=== PATIENT | female | born 1950 | race Caucasian/White ===

== ENCOUNTER 2021-12-25 14:11 | Outpatient (CLI) | payer MEDICARE ==
--- NOTE | 2021-12-25 15:22 | DEXA Report ---
PROCEDURE: Dexa Spine and/or Hip INDICATIONS: OSTEOPOROSIS TECHNIQUE: Dual energy x-ray absorptiometry (DXA) was performed on a [employer] System. Regions measur ed are the AP Spine, femoral neck, and if needed forearm. COMPARISON: October 05, 2014. FINDINGS: Lumbar Spine: Bone Mineral Density 0.910 g/cm/cm,T score -2.3, osteopenia Left Hip: Bone Mineral Density 0.907 g/cm/cm,T score -0.8, normal Left Femoral Neck: Bone Mineral Density 0.876 g/cm/cm, T score -1.2, osteopenia (T score greater or equal to -1.0: NORMAL) (T score from -1.1 to -2.4: OSTEOPENIA) (T score less than or equal to -2.5 to: OSTEOPOROSIS) Impression: Bone density as detailed above. Patients with diagnosis of osteoporosis or osteopenia should have regular bone mineral density assess ment. For those eligible for Medicare, routine testing is allowed once every 2 years. Testing frequ ency can be increased for patients who have rapidly progressing disease or for those who are receivin g medical therapy to restore bone mass. Reviewed by: Baldev June MD on 12/25/2021 3:20 PM PDT Approved by: Baldev June MD on 12/25/2021 3:20 PM PDT Station ID: [id number]
== END 2021-12-25 14:12 | disposition home or self-care (01) ==
LOC: DI 14:11
PROVIDERS: ATTEND Physician Assistant
DX: M85.89 Other specified disorders of bone density and structure, multiple sites (principal)